=== PATIENT | male | born 1950 | race Caucasian/White ===

== ENCOUNTER 2018-09-27 15:05 | Outpatient (CLI) | payer MEDICARE | END 2018-09-27 23:59 | disposition home or self-care (01) | LOC: RAD 15:05 | PROVIDERS: ATTEND Family Medicine | DX: K59.00 Constipation, unspecified (principal); R11.0 Nausea; I10 Essential (primary) hypertension; Z87.891 Personal history of nicotine dependence | CPT/HCPCS: 74021 ==

== ENCOUNTER 2019-08-17 08:00 | Inpatient (IN) | payer MEDICARE ==
[~2019-08-17] VITALS: Ht 177.8 cm; Wt 118.2 kg
[2019-08-17 08:49] LABS: BASOPHILS # (AUTO) 0.1 X10'3 (0-0.2); BASOPHILS % (AUTO) 0.7 % (0-1); EOSINOPHILS # (AUTO) 0.2 X10'3 (0-0.9); EOSINOPHILS % (AUTO) 2.7 % (0-6); HEMATOCRIT 44.1 % (42.0-52.0); HEMOGLOBIN 14.8 g/dl (14.0-17.9); LYMPHOCYTES # (AUTO) 2.9 X10'3 (1.1-4.8); LYMPHOCYTES % (AUTO) 36.5 % (21-51); MEAN CORPUSCULAR HEMOGLOBIN 29.8 PG (27.0-31.0); MEAN CORPUSCULAR HGB CONC 33.6 g/dL (33.0-36.5); MEAN CORPUSCULAR VOLUME 88.7 FL (78-98); MEAN PLATELET VOLUME 7.7 FL (7.4-10.4); MONOCYTES # (AUTO) 0.7 X10'3 (0-0.9); MONOCYTES % (AUTO) 8.5 % (2-12); NEUTROPHILS # (AUTO) 4.1 X10'3 (1.8-7.7); NEUTROPHILS % (AUTO) 51.6 % (42-75); PLATELET COUNT 197 X10'3 (140-440); RED BLOOD COUNT 4.97 X10'6 (4.70-6.10); RED CELL DISTRIBUTION WIDTH 14.9 % (11.5-14.5); WHITE BLOOD COUNT 7.9 X10'3 (4.5-11.0)
[2019-08-17 08:58] LABS: PARTIAL THROMBOPLASTIN TIME 29 SECONDS (22-32)
[2019-08-17 08:59] LABS: ALANINE AMINOTRANSFERASE 32 U/L (12-78); ALBUMIN 3.4 G/DL (3.4-5.0); ALBUMIN/GLOBULIN RATIO 0.9 (1.1-1.5); ALKALINE PHOSPHATASE 73 IU/L (46-116); ANION GAP 7 (8-16); ASPARTATE AMINO TRANSFERASE 19 U/L (10-37); BILIRUBIN,TOTAL 0.4 MG/DL (0.1-1.0); BLOOD UREA NITROGEN 18 MG/DL (7-18); BUN/CREATININE RATIO 12.3 (5.4-32.0); C-REACTIVE PROTEIN 0.52 MG/DL (0.0-0.5); CALCIUM 9.1 MG/DL (8.5-10.1); CHLORIDE 106 MMOL/L (99-107); CREATININE 1.46 MG/DL (0.60-1.10); GLUCOSE 126 MG/DL (70-104); POTASSIUM 3.8 MMOL/L (3.5-5.1); SODIUM 141 MMOL/L (135-145); TOTAL CARBON DIOXIDE 27.9 MMOL/L (24-32); TOTAL PROTEIN 7.2 G/DL (6.4-8.2); eGFR 48 ML/MIN
[2019-08-17 09:10] LABS: CLARITY,URINE CLEAR (Clear); COLOR,URINE YELLOW (Yellow); GLUCOSE, URINE NEGATIVE (Neg); KETONES,URINE NEGATIVE (Neg); LEUKOCYTE ESTERASE ,URINE TRACE (Neg); NITRITES, URINE NEGATIVE (Neg); OCCULT BLOOD,URINE NEGATIVE (Neg); PH,URINE 6.5 (4.8-8.0); PROTEIN,URINE NEGATIVE (Neg); UROBILINOGEN,URINE 0.2 E.U/dL (0.2-1.0)
[2019-08-17 09:11] LABS: UA COLLECTION TYPE URINAL
[2019-08-17 09:17] LABS: SQUAMOUS EPITHELIAL CELL,UR FEW /LPF (FEW)
[2019-08-17 09:18] LABS: BACTERIA,URINE FEW /HPF (Neg); RBC,URINE NONE SEEN /HPF (0-2)
[2019-08-17] MEDS: normal saline 1000ml 1,000 ML IV SCH ×2 (09:21→17:58)
[2019-08-17] MEDS ORDERED: LISI-600 PO (09:24)
[2019-08-17] MEDS ORDERED: IBUP-1984 PO (09:24)
[2019-08-17] MEDS ORDERED: MELA5CAP PO (09:24)
[2019-08-17] MEDS ORDERED: TADA2.5T2 PO (09:24)
[2019-08-17] MEDS ORDERED: acetaminophen 650mg rectal suppository RC PRN (09:25)
[2019-08-17] MEDS ORDERED: bisacodyl 10mg suppository rectal RC PRN (09:25)
[2019-08-17] MEDS ORDERED: HYDROcodone/acetaminophen 5mg/325mg tablet PO PRN (09:25)
[2019-08-17] MEDS ORDERED: acetaminophen 325mg tablet PO PRN ×2 (09:25)
[2019-08-17] MEDS ORDERED: magnesium 2GM in 50ml NS 50 ML IV PRN (09:25)
[2019-08-17] MEDS ORDERED: mag hydrox/Alum hydrox/simeth 30ml oral suspension PO PRN (09:25)
[2019-08-17] MEDS ORDERED: potassium Cl 20 mEq SR tablet PO PRN ×2 (09:25)
[2019-08-17] MEDS ORDERED: magnesium 4gm in 100ml NS 100 ML IV PRN (09:25)
[2019-08-17] MEDS ORDERED: ondansetron/PF 4mg/2ml inj IV PRN (09:25)
[2019-08-17] MEDS ORDERED: HYDROcodone/acetaminophen 10/325mg tab PO PRN (09:25)
[2019-08-17] MEDS ORDERED: potassium CL 10mEq/100ml bag 100 ML IV PRN ×2 (09:25)
[2019-08-17] MEDS ORDERED: morphine 2 MG/ML inj. syringe IV PRN ×2 (09:25)
[2019-08-17] MEDS ORDERED: magnesium hydroxide 30ml (MOM) UD suspension PO PRN (09:25)
[2019-08-17] MEDS ORDERED: magnesium Cl slow-release 64mg tablet PO PRN (09:25)
[2019-08-17] MEDS ORDERED: diphenhydrAMINE 25mg capsule PO PRN (09:25)
[2019-08-17] MEDS ORDERED: atorvastatin 20mg tablet PO SCH (09:30)
[2019-08-17] MEDS ORDERED: aspirin 325mg tablet PO ONE (09:35)
[2019-08-17] MEDS ORDERED: normal saline 1000ml 1,000 ML IV ONE (09:43)
[2019-08-17 09:44] LABS: HEMOGLOBIN A1C 6.2 % (4.5-6.2)
[2019-08-17] MEDS ORDERED: LORazepam 2 mg/ml vial IV ONE (09:45)
[2019-08-17] MEDS ORDERED: normal saline 1000ML IV soln IVB ONE (09:45)
[2019-08-17 09:55] LABS: CHOL/HDL RATIO 5.3 (0.00-4.99); CHOLESTEROL 203 MG/DL (0-200); HDL CHOLESTEROL 38 MG/DL (35-60); LDL CHOLESTEROL 140 MG/DL (50-100); TRIGLYCERIDES 168 MG/DL (20-135)
[2019-08-17] MEDS ORDERED: XAL0.005OS LEFTEYE (10:01)
[2019-08-17] MEDS ORDERED: LISI1TAB28 PO (10:01)
[2019-08-17] MEDS ORDERED: levoFLOXACIN 750MG TABLET PO SCH (11:00)
--- NOTE | 2019-08-17 13:15 | NUR ---
Received report from ED, patient arrived on unit, ambulated to bed, VSS, no acute distress, will continue to monitor.
[2019-08-17 13:30] VITALS: BP 142/80
[2019-08-17 15:00] VITALS: BP 137/91
[2019-08-17 18:00] VITALS: BP 147/83
--- NOTE | 2019-08-17 18:14 | NUR ---
Problems reprioritized. Patient report given, questions answered & plan of care reviewed with JACKELINE Brown.
--- NOTE | 2019-08-17 18:30 | NUR ---
Patient in room PCU 3012. I have received report from Soha, and had the opportunity to ask questions and assume patient care.
[2019-08-17] MEDS ORDERED: lactobacillus rhamnosus 10,000 MMU CELLS/CAPSULE PO SCH (20:00)
[2019-08-17] MEDS ORDERED: heparin, porcine 5000 units/ml vial SQ SCH (20:00)
[2019-08-17] MEDS ORDERED: K and/or MAG REPLACEMENT MC SCH (20:00)
[2019-08-17] MEDS ORDERED: latanoprost 0.005% 2.5ml ophthalmic drops LEFTEYE SCH (21:00)
[2019-08-17] MEDS ORDERED: Melatonin 3mg tablet PO SCH (21:00)
[2019-08-17] MEDS ORDERED: temazepam 15mg capsule PO PRN (21:00)
--- NOTE | 2019-08-17 21:02 | NUR ---
PAGER ID: [phone] MESSAGE: Hemant Mack [id number] M [id number] admitted for CVA/TIA with diplopia, Results are negative, No Diplopia. AOX4, with Hx of HTN. requesting Ativan because he gets white coat anxiety. He wants a CPAP machine too. James [id number] Addendum: 08/17/19 at 2117 by Kevin Reeves RN Dr. Retana called back and ordered Ativan 1mg IV Q6H PRN for his anxiety, and also CPAP if available by (Respiratory Therapist). No other orders were given at this time.
[2019-08-17] MEDS ORDERED: LORazepam 2 mg/ml vial IV PRN (21:10)
[2019-08-17 22:00] VITALS: BP 127/45
--- NOTE | 2019-08-18 02:22 | NUR ---
patient refused the IV fluid. Requested to discontinue it despite telling him that its to keep you hydrated.
--- NOTE | 2019-08-18 05:09 | NUR ---
Patient leaving AMA without explanation. He is alert, oriented x4. Nacho, the charge nurse is aware of the issue. Signed the AMA paper and waiting for family to pick him up. Took the IV off. Patient is alert, oriented x4, not complaining of any pain and not on any kind of distress. Addendum: 08/18/19 at 0536 by Kevin Reeves RN patient left the floor at 0520. Charge nurse Miguel aware of it.
[2019-08-18] MEDS ORDERED: lisinopril 20mg tablet PO SCH (08:00)
[2019-08-18] MEDS ORDERED: aspirin 81mg tablet.DR PO SCH (08:00)
[2019-08-18] MEDS ORDERED: HYDROchlorothiazide 12.5mg capsule PO SCH (08:00)
[2019-08-18 08:09] LABS: % FREE PSA 7.3 % (.); PSA, FREE 0.81 ng/mL
== END 2019-08-18 05:17 | disposition left against medical advice (07) | DRG 69 ==
LOC: ER 08:01 → ED HOLD 09:21 → PCU 3S 13:19
PROVIDERS: ADMIT Family Medicine; ATTEND Family Medicine
DX: G45.9 Transient cerebral ischemic attack, unspecified (principal); N39.0 Urinary tract infection, site not specified; F12.90 Cannabis use, unspecified, uncomplicated; M54.9 Dorsalgia, unspecified; Z53.29 Procedure and treatment not carried out because of patient's decision for other reasons; G89.29 Other chronic pain; I10 Essential (primary) hypertension; Z82.49 Family history of ischemic heart disease and other diseases of the circulatory system; Z87.891 Personal history of nicotine dependence; Z88.8 Allergy status to other drugs, medicaments and biological substances; Z79.899 Other long term (current) drug therapy
CPT/HCPCS: 36415; 70450; 70544; 70547; 70551; 71045; 80053; 80061; 81001; 82948; 83036; 84153; 84154; 84443; 85025; 85610; 85651; 85730; 86140; 87081; 87088; 92508; 92616; 93005; 93306; 99285; G0378; J1644; J2060; J7030

== ENCOUNTER 2020-06-24 10:08 | Outpatient (CLI) | payer MEDICARE ==
[~2020-06-24 10:08] MED LIST: IBUP-1984 PO; LISI1TAB51 PO; MELA5CAP PO; TADA2.5T2 PO; XAL0.005OS LEFTEYE
== END 2020-06-24 23:59 | disposition home or self-care (01) ==
LOC: RT 10:08
PROVIDERS: ATTEND Family Medicine
DX: J44.9 Chronic obstructive pulmonary disease, unspecified (principal); Z87.891 Personal history of nicotine dependence; Z95.0 Presence of cardiac pacemaker
CPT/HCPCS: 71046; 94010; 94727; 94729

== ENCOUNTER 2021-07-01 11:34 | Outpatient (CLI) | payer MEDICARE | END 2021-07-01 23:59 | disposition home or self-care (01) | LOC: RAD 11:34 | PROVIDERS: ATTEND Family Medicine | DX: M47.813 Spondylosis without myelopathy or radiculopathy, cervicothoracic region (principal); M48.02 Spinal stenosis, cervical region; M47.816 Spondylosis without myelopathy or radiculopathy, lumbar region; M48.061 Spinal stenosis, lumbar region without neurogenic claudication; M51.44 Schmorl's nodes, thoracic region; M79.89 Other specified soft tissue disorders; J35.8 Other chronic diseases of tonsils and adenoids; M85.88 Other specified disorders of bone density and structure, other site; I71.4 Abdominal aortic aneurysm, without rupture; N28.1 Cyst of kidney, acquired; I25.10 Atherosclerotic heart disease of native coronary artery without angina pectoris; D71 Functional disorders of polymorphonuclear neutrophils; R91.1 Solitary pulmonary nodule | CPT/HCPCS: 72125; 72128; 72131 ==

== ENCOUNTER 2021-07-24 08:24 | Outpatient (CLI) | payer MEDICARE ==
[~2021-07-24 08:24] MED LIST changes: +iohexol 300mg/ml 100ml inj. ONE
== END 2021-07-24 23:59 | disposition home or self-care (01) ==
LOC: RAD 08:24
PROVIDERS: ATTEND Family Medicine
DX: K57.30 Diverticulosis of large intestine without perforation or abscess without bleeding (principal); K42.9 Umbilical hernia without obstruction or gangrene; I71.4 Abdominal aortic aneurysm, without rupture; M47.819 Spondylosis without myelopathy or radiculopathy, site unspecified; J98.11 Atelectasis; N28.1 Cyst of kidney, acquired; Z98.890 Other specified postprocedural states
CPT/HCPCS: 74177; Q9967

== ENCOUNTER → 2021-08-10 | Day surgery (SDC) | payer MEDICARE ==
[~2021-08-10] MED LIST changes: -iohexol 300mg/ml 100ml inj. ONE
== END | disposition home or self-care (01) ==
LOC: RAD 08:24
PROVIDERS: ATTEND Family Medicine
DX: K91.1 Postgastric surgery syndromes (principal)
CPT/HCPCS: 78264; A9541

== ENCOUNTER 2022-03-09 10:55 | Outpatient (CLI) | payer MEDICARE ==
[2022-03-08 12:29] LABS: ALBUMIN 3.2 G/DL (3.4-5.0); ANION GAP 6 (8-16); BLOOD UREA NITROGEN 20 MG/DL (7-18); BUN/CREATININE RATIO 14.4 (5.4-32.0); CALCIUM 9.1 MG/DL (8.5-10.1); CHLORIDE 105 MMOL/L (99-107); CREATININE 1.39 MG/DL (0.60-1.10); GLUCOSE 127 MG/DL (70-104); POTASSIUM 3.7 MMOL/L (3.5-5.1); SODIUM 141 MMOL/L (135-145); eGFR 51 ML/MIN
[~2022-03-09 10:55] MED LIST changes: +iohexol 350MG/ML 100ml bottle IV ONE
== END 2022-03-09 23:59 | disposition home or self-care (01) ==
LOC: RAD 10:55
PROVIDERS: ATTEND Surgery Vascular Surgery
DX: I71.43 Infrarenal abdominal aortic aneurysm, without rupture (principal); K57.30 Diverticulosis of large intestine without perforation or abscess without bleeding; N42.89 Other specified disorders of prostate; Z95.828 Presence of other vascular implants and grafts
CPT/HCPCS: 36415; 74174; 80048; J3490; Q9967

== ENCOUNTER 2022-07-21 08:40 | Outpatient (CLI) | payer OTHER, MEDICARE ==
[~2022-07-21 08:40] MED LIST changes: -iohexol 350MG/ML 100ml bottle IV ONE
== END 2022-07-21 23:59 | disposition home or self-care (01) ==
LOC: CARD DIAG 08:40
PROVIDERS: ATTEND Chiropractor
DX: I08.0 Rheumatic disorders of both mitral and aortic valves (principal); I25.10 Atherosclerotic heart disease of native coronary artery without angina pectoris
CPT/HCPCS: 93306

== ENCOUNTER 2022-08-16 09:30 | Outpatient (CLI) | payer OTHER, MEDICARE | END 2022-08-16 23:59 | disposition home or self-care (01) | LOC: RAD 09:30 | PROVIDERS: ATTEND Chiropractor | DX: I25.10 Atherosclerotic heart disease of native coronary artery without angina pectoris (principal) | CPT/HCPCS: 93005 ==

== ENCOUNTER 2023-11-11 07:06 | Observation (INO) | payer OTHER, MEDICARE ==
[2023-11-10 21:49] VITALS: BP 121/74; PULSE 54; RESP 16; TEMP 98.1; O2SAT 95
[~2023-11-11] VITALS: Ht 177.8 cm; Wt 122.5 kg
[2023-11-11] MEDS ORDERED: iohexol 350MG/ML 100ml bottle IV ONE (07:30)
[2023-11-11] MEDS: ondansetron/PF 4mg/2ml inj IV ONE (07:50)
[2023-11-11 08:19] LABS: BASOPHILS % (AUTO) 0.4 % (0-1); EOSINOPHILS # (AUTO) 0.1 X10'3 (0-0.9); EOSINOPHILS % (AUTO) 1.5 % (0-6); HEMATOCRIT 37.7 % (42.0-52.0); HEMOGLOBIN 12.7 g/dl (14.0-17.9); LYMPHOCYTES # (AUTO) 0.8 X10'3 (1.1-4.8); MEAN CORPUSCULAR HEMOGLOBIN 29.5 PG (27.0-31.0); MEAN CORPUSCULAR HGB CONC 33.7 g/dL (33.0-36.5); MEAN CORPUSCULAR VOLUME 87.6 FL (78-98); MEAN PLATELET VOLUME 7.1 FL (7.4-10.4); MONOCYTES # (AUTO) 0.5 X10'3 (0-0.9); NEUTROPHILS # (AUTO) 4.4 X10'3 (1.8-7.7); NEUTROPHILS % (AUTO) 75.1 % (42-75); PLATELET COUNT 133 X10'3 (140-440); RED BLOOD COUNT 4.31 X10'6 (4.70-6.10); RED CELL DISTRIBUTION WIDTH 15.4 % (11.5-14.5); WHITE BLOOD COUNT 5.9 X10'3 (4.5-11.0)
[2023-11-11 08:39] LABS: APTT 30 SECONDS (22-32); INR 1.1 INR; PROTHROMBIN TIME 11.6 SECONDS (9.0-12.0)
[2023-11-11 08:42] LABS: ALANINE AMINOTRANSFERASE 30 U/L (12-78); ALBUMIN 3.2 G/DL (3.4-5.0); ALBUMIN/GLOBULIN RATIO 0.9 (1.1-1.5); ALKALINE PHOSPHATASE 63 IU/L (46-116); ANION GAP 9 (8-16); ASPARTATE AMINO TRANSFERASE 10 U/L (10-37); BILIRUBIN,TOTAL 0.4 MG/DL (0.1-1.0); BLOOD UREA NITROGEN 18 MG/DL (7-18); BUN/CREATININE RATIO 14.5 (10.0-20.0); CALCIUM 9.1 MG/DL (8.5-10.1); CHLORIDE 103 MMOL/L (99-107); CREATININE 1.24 MG/DL (0.60-1.10); GLUCOSE 175 MG/DL (70-104); POTASSIUM 3.8 MMOL/L (3.5-5.1); SODIUM 138 MMOL/L (135-145); TOTAL CARBON DIOXIDE 25.9 MMOL/L (24-32); TOTAL PROTEIN 6.6 G/DL (6.4-8.2); eCRCL 56 ML/MIN; eGFR 57 ML/MIN
[2023-11-11] MEDS: LORazepam 2 mg/ml vial IV ONE (09:14)
[2023-11-11 11:08] LABS: BILIRUBIN,URINE NEGATIVE (Neg); CLARITY,URINE CLEAR (Clear); COLOR,URINE YELLOW (Yellow); GLUCOSE, URINE NEGATIVE (Neg); KETONES,URINE NEGATIVE (Neg); LEUKOCYTE ESTERASE ,URINE NEGATIVE (Neg); NITRITES, URINE NEGATIVE (Neg); OCCULT BLOOD,URINE NEGATIVE (Neg); PH,URINE 6.5 (4.8-8.0); PROTEIN,URINE NEGATIVE (Neg); UROBILINOGEN,URINE 0.2 E.U/dL (0.2-1.0)
[2023-11-11 11:39] LABS: UA COLLECTION TYPE NON-SPECIFIED
[2023-11-11] MEDS ORDERED: magnesium Cl slow-release 64mg tablet PO PRN (12:30)
[2023-11-11] MEDS ORDERED: magnesium sulf-water 2g/50mL 50 ML IV PRN (12:30)
[2023-11-11] MEDS ORDERED: potassium Cl 40MEQ/1/2NS 520ml 520 ML IV PRN (12:30)
[2023-11-11] MEDS ORDERED: ondansetron/PF 4mg/2ml inj IV PRN (12:30)
[2023-11-11] MEDS ORDERED: potassium Cl 20 mEq SR tablet PO PRN ×2 (12:30)
[2023-11-11] MEDS ORDERED: magnesium hydroxide 30ml (MOM) UD suspension PO PRN (12:30)
[2023-11-11] MEDS ORDERED: mag hydrox/Alum hydrox/simeth 30ml oral suspension PO PRN (12:30)
[2023-11-11] MEDS ORDERED: magnesium sulf-water 4G/100mL 100 ML IV PRN (12:30)
[2023-11-11 12:58] LABS: MAGNESIUM 1.6 MG/DL (1.5-2.4)
[2023-11-11] MEDS: meclizine 12.5mg tablet PO ONE ×2 (14:01→20:56)
[2023-11-11] MEDS: normal saline 1000ml 1,000 ML IV SCH (14:02)
[2023-11-11] MEDS ORDERED: ROSU20TA73 PO (17:57)
[2023-11-11] MEDS ORDERED: METO25TA6 PO (17:57)
[2023-11-11] MEDS ORDERED: MIRT-88 PO (17:57)
[2023-11-11] MEDS ORDERED: LISI1TAB53 PO (17:57)
[2023-11-11] MEDS ORDERED: BICA50TA7 PO (17:57)
[2023-11-11] MEDS ORDERED: RELU120T PO (17:57)
[2023-11-11] MEDS ORDERED: TADA20TA43 PO (17:57)
[2023-11-11] MEDS ORDERED: APIX5TAB3 PO (17:57)
[2023-11-11 18:06] LABS: CHOL/HDL RATIO 2.5 (0.00-4.99); CHOLESTEROL 121 MG/DL (0-200); HDL CHOLESTEROL 48 MG/DL (35-60); LDL CHOLESTEROL 55 MG/DL (50-100); TRIGLYCERIDES 173 MG/DL (20-135)
[2023-11-11] MEDS: docusate sod 100mg capsule PO SCH (20:00)
[2023-11-11] MEDS: K and/or MAG REPLACEMENT MC SCH (20:00)
[2023-11-11] MEDS: diazepam 5mg tablet PO ONE (20:55)
[2023-11-11 21:45] VITALS: RESP 16; O2SAT 95
[2023-11-11 21:49] VITALS: BP 121/74; PULSE 54; RESP 16; TEMP 98.1; O2SAT 95
[2023-11-11] MEDS: acetaminophen 325mg tablet PO PRN (23:30)
[2023-11-11] MEDS: apixaban 5mg tablet PO SCH (23:31)
[2023-11-12 02:00] VITALS: BP 145/90; PULSE 62; RESP 17; TEMP 97.7; O2SAT 96
[2023-11-12 08:41] LABS: BASOPHILS % (AUTO) 0.6 % (0-1); EOSINOPHILS # (AUTO) 0.1 X10'3 (0-0.9); EOSINOPHILS % (AUTO) 2.1 % (0-6); HEMATOCRIT 37.9 % (42.0-52.0); HEMOGLOBIN 12.6 g/dl (14.0-17.9); LYMPHOCYTES % (AUTO) 18.8 % (21-51); MEAN CORPUSCULAR HEMOGLOBIN 29.2 PG (27.0-31.0); MEAN CORPUSCULAR HGB CONC 33.3 g/dL (33.0-36.5); MEAN CORPUSCULAR VOLUME 87.7 FL (78-98); MEAN PLATELET VOLUME 7.3 FL (7.4-10.4); MONOCYTES # (AUTO) 0.5 X10'3 (0-0.9); MONOCYTES % (AUTO) 8.5 % (2-12); NEUTROPHILS # (AUTO) 3.8 X10'3 (1.8-7.7); PLATELET COUNT 138 X10'3 (140-440); RED BLOOD COUNT 4.32 X10'6 (4.70-6.10); RED CELL DISTRIBUTION WIDTH 15.5 % (11.5-14.5); WHITE BLOOD COUNT 5.4 X10'3 (4.5-11.0)
[2023-11-12 08:48] LABS: ALANINE AMINOTRANSFERASE 26 U/L (12-78); ALBUMIN/GLOBULIN RATIO 0.9 (1.1-1.5); ALKALINE PHOSPHATASE 61 IU/L (46-116); ANION GAP 9 (8-16); ASPARTATE AMINO TRANSFERASE 17 U/L (10-37); BILIRUBIN,TOTAL 0.5 MG/DL (0.1-1.0); BLOOD UREA NITROGEN 20 MG/DL (7-18); CHLORIDE 105 MMOL/L (99-107); CREATININE 1.33 MG/DL (0.60-1.10); GLUCOSE 136 MG/DL (70-104); MAGNESIUM 1.8 MG/DL (1.5-2.4); SODIUM 143 MMOL/L (135-145); TOTAL CARBON DIOXIDE 29.1 MMOL/L (24-32); TOTAL PROTEIN 6.3 G/DL (6.4-8.2); eCRCL 52 ML/MIN; eGFR 53 ML/MIN
[2023-11-12] MEDS: ibuprofen 200mg tablet PO PRN (09:49)
[2023-11-12 10:53] VITALS: BP 146/84; PULSE 56; RESP 16; TEMP 98.2; O2SAT 94
[2023-11-12] MEDS ORDERED: MECL-226 PO (14:55)
== END 2023-11-12 13:14 | disposition home or self-care (01) ==
LOC: ER 07:08 → ED HOLD 12:15 → ORTHO 4S 21:51
PROVIDERS: ADMIT Internal Medicine; ATTEND Internal Medicine
DX: R42 Dizziness and giddiness (principal); R51.9 Headache, unspecified; R00.1 Bradycardia, unspecified; I10 Essential (primary) hypertension; C61 Malignant neoplasm of prostate; G47.30 Sleep apnea, unspecified; I71.40 Abdominal aortic aneurysm, without rupture, unspecified; Z95.0 Presence of cardiac pacemaker; Z79.899 Other long term (current) drug therapy
CPT/HCPCS: 36415; 70450; 70496; 70498; 71045; 80053; 80061; 81003; 83735; 85025; 85610; 85730; 87081; 93005; 93306; 96361; 96374; 96375; 99285; G0378; J2060; J2405; J7030; J8597; Q9967; A6402

== ENCOUNTER 2024-05-05 06:07 | Emergency (ER) | payer OTHER, MEDICARE ==
[~2024-05-05] VITALS: Ht 177.8 cm; Wt 97.2 kg
[~2024-05-05 06:07] MED LIST changes: +APIX5TAB3 PO; +BICA50TA7 PO; -IBUP-1984 PO; -LISI1TAB51 PO; +LISI1TAB53 PO; +MECL-226 PO; -MELA5CAP PO; +METO25TA6 PO; +MIRT-88 PO; +RELU120T PO; +ROSU20TA98 PO; -TADA2.5T2 PO; +TADA20TA43 PO; -XAL0.005OS LEFTEYE
[2024-05-05] MEDS ORDERED: iohexol 350MG/ML 100ml bottle IV ONE (06:34)
[2024-05-05 07:08] VITALS: TEMP 98.6
[2024-05-05 07:28] LABS: BASOPHILS % (AUTO) 0.5 % (0-1); EOSINOPHILS # (AUTO) 0.1 X10'3 (0-0.9); EOSINOPHILS % (AUTO) 1.5 % (0-6); HEMATOCRIT 36.9 % (42.0-52.0); HEMOGLOBIN 12.4 g/dl (14.0-17.9); LYMPHOCYTES % (AUTO) 11.7 % (21-51); MEAN CORPUSCULAR HEMOGLOBIN 29.8 PG (27.0-31.0); MEAN CORPUSCULAR HGB CONC 33.7 g/dL (33.0-36.5); MEAN CORPUSCULAR VOLUME 88.4 FL (78-98); MEAN PLATELET VOLUME 7.4 FL (7.4-10.4); MONOCYTES # (AUTO) 0.7 X10'3 (0-0.9); MONOCYTES % (AUTO) 7.9 % (2-12); NEUTROPHILS # (AUTO) 6.5 X10'3 (1.8-7.7); NEUTROPHILS % (AUTO) 78.4 % (42-75); PLATELET COUNT 168 X10'3 (140-440); RED BLOOD COUNT 4.18 X10'6 (4.70-6.10); RED CELL DISTRIBUTION WIDTH 15.5 % (11.5-14.5); WHITE BLOOD COUNT 8.3 X10'3 (4.5-11.0)
[2024-05-05 07:44] LABS: APTT 30 SECONDS (22-32); INR 1.1 INR; PROTHROMBIN TIME 11.6 SECONDS (9.0-12.0)
[2024-05-05 07:51] LABS: ALANINE AMINOTRANSFERASE 22 U/L (12-78); ALBUMIN 3.2 G/DL (3.4-5.0); ALKALINE PHOSPHATASE 72 IU/L (46-116); ANION GAP 9 (8-16); ASPARTATE AMINO TRANSFERASE 15 U/L (10-37); BILIRUBIN,TOTAL 0.4 MG/DL (0.1-1.0); BLOOD UREA NITROGEN 26 MG/DL (7-18); BUN/CREATININE RATIO 19.7 (10.0-20.0); CALCIUM 8.8 MG/DL (8.5-10.1); CHLORIDE 108 MMOL/L (99-107); CREATININE 1.32 MG/DL (0.60-1.10); GLUCOSE 134 MG/DL (70-104); POTASSIUM 3.9 MMOL/L (3.5-5.1); SODIUM 141 MMOL/L (135-145); TOTAL PROTEIN 6.5 G/DL (6.4-8.2); eCRCL 52 ML/MIN; eGFR 53 ML/MIN
[2024-05-05 08:30] LABS: BILIRUBIN,URINE NEGATIVE (Neg); CLARITY,URINE CLEAR (Clear); COLOR,URINE YELLOW (Yellow); GLUCOSE, URINE NEGATIVE (Neg); KETONES,URINE NEGATIVE (Neg); LEUKOCYTE ESTERASE ,URINE NEGATIVE (Neg); NITRITES, URINE NEGATIVE (Neg); OCCULT BLOOD,URINE NEGATIVE (Neg); PH,URINE 5.5 (4.8-8.0); PROTEIN,URINE NEGATIVE (Neg); UROBILINOGEN,URINE 0.2 E.U/dL (0.2-1.0)
[2024-05-05 08:41] LABS: UA COLLECTION TYPE CLN CATCH MIDSTREAM
[2024-05-05] MEDS: LORazepam 2 mg/ml vial IV ONE (09:30)
[2024-05-05] MEDS ORDERED: LORA-269 PO (09:45)
[2024-05-05 10:23] VITALS: BP 102/67; PULSE 60; RESP 13; O2SAT 96
== END 2024-05-05 10:27 | disposition home or self-care (01) ==
LOC: ER 06:08
DX: H35.30 Unspecified macular degeneration (principal); H53.8 Other visual disturbances; I10 Essential (primary) hypertension; G89.29 Other chronic pain; Z88.1 Allergy status to other antibiotic agents; Z79.899 Other long term (current) drug therapy
CPT/HCPCS: 36415; 70450; 70496; 70498; 71045; 80053; 81003; 85025; 85610; 85730; 93005; 96374; 99285; J2060; Q9967

== ENCOUNTER → 2024-12-17 | Outpatient (CLI) | payer MEDICARE, OTHER ==
[~2024-12-17] MED LIST changes: +LORA-269 PO; +iohexol 300mg/ml 100ml inj. ONE
--- NOTE | 2024-12-17 10:08 | RADIOLOGY REPORT ---
EXAM: CT CT ABDOMEN PELVIS W/ IV ORAL CONTRAST HISTORY: PROSTATE CANCER;ABDOMINAL PAIN COMPARISON: CTA ABDOMEN PELVIS on DOS: 03/09/22, CT ABDOMEN PELVIS on DOS: 07/24/21 TECHNIQUE: Helical CT images of the abdomen and pelvis were performed with 100 mL omnipaque 300 IV c ontrast. Sagittal and coronal reformatted images were obtained. This CT exam was performed using 1 or more of the following dose reduction techniques: Automated exposure control, adjustment of the mA an d/or kv according to patient size, or the use of iterative reconstruction techniques. Radiation Dose Information: CT Dose: CTDI volume is 71.66 mGy. Dose-length product is 2886.53 mGy*cm FINDINGS: CT abdomen: There is a calcified granuloma in the left lower lobe. There is mild scarring or atelect asis in the bilateral lower lobes. There is a partially visualized left chest pacemaker. The heart i s not enlarged. Bilateral renal cysts are re-identified. Left renal superior pole solid mass versus h yperdense cyst has increased in size from 3.0 cm on the previous study 23.8 cm on the current study ( image 34, series 3). Right renal inferior pole exophytic hyperdense cyst versus solid mass has increa sed in size from 2.3 cm on the previous study 23.4 cm on the current study (image 54, series 2). Ther e is distal duodenal diverticulum. There are punctate calcifications in the pancreas. The liver john ures 19 cm longitudinal. The spleen, gallbladder, and adrenal glands are unremarkable. There are pos toperative changes of aorto bi-iliac endovascular stenting, and the stents are patent. The abdominal aortic aneurysm has decreased in size from 5.8 cm previously to 4.4 cm currently. There is a small fa tty umbilical hernia. CT pelvis: No abnormal bowel dilatation, free air, or free fluid. There is fecal retention in the col on. There are descending and sigmoid colon diverticula without evidence of acute diverticulitis. The appendix is surgically absent. The urinary bladder is unremarkable. The prostate is nonenlarged. Th ere are thoracolumbar and lumbosacral transitional vertebrae. There is advanced degenerative disc di sease and facet arthropathy in the lower lumbar spine. There is mild osteoarthritis of the hips. IMPRESSION: 1. Postoperative changes of left chest pacemaker, appendectomy, and aorto bi-iliac endovascular stent s. 2. Bilateral renal complex cysts versus solid masses have increased in size since CT scan dated 07/01. Recommend multiphasic pre and post-contrast CT scan of the abdomen on an outpatient nonemerge nt basis for better characterization and to exclude malignancy. 3. Decreased size of the infrarenal abdominal aortic aneurysm as above. 4. Hepatomegaly. 5. Fecal retention throughout the colon suggestive of constipation. 6. Descending and sigmoid colon diverticulosis without evidence of acute diverticulitis. 7. Advanced lower lumbar degenerative disc disease and facet arthropathy. 8. No evidence of bowel obstruction or other acute process in the abdomen or pelvis.
== END | disposition home or self-care (01) ==
LOC: RAD 08:24
PROVIDERS: ATTEND Family Medicine
DX: I71.43 Infrarenal abdominal aortic aneurysm, without rupture (principal); K57.30 Diverticulosis of large intestine without perforation or abscess without bleeding; R16.0 Hepatomegaly, not elsewhere classified; R10.9 Unspecified abdominal pain; C61 Malignant neoplasm of prostate; J84.10 Pulmonary fibrosis, unspecified; N28.1 Cyst of kidney, acquired; K42.9 Umbilical hernia without obstruction or gangrene; M51.369 Other intervertebral disc degeneration, lumbar region without mention of lumbar back pain or lower extremity pain; M47.816 Spondylosis without myelopathy or radiculopathy, lumbar region; K76.89 Other specified diseases of liver
CPT/HCPCS: 74177; Q9967